=== PATIENT | female | born 1985 | race Two or more races ===

== ENCOUNTER 2022-02-08 04:45 | Emergency (ER) | payer OTHER ==
[~2022-02-08] VITALS: Ht 154.9 cm; Wt 63.5 kg
--- NOTE | 2022-02-08 06:27 | NUR ---
TO ER BED 1. BIBS C/O NON RADIATING LOWER BACK PAIN FOR 1 WEEK. IBUPROFEN TAKEN WITHOUT ANY RELIEF. PT CHANGED INTO GOWN. CONNECTED TO MONITOR. AWAITING MD JEAN BAPTISTE
--- NOTE | 2022-02-08 06:49 | NUR ---
URINE COLLECTED AND SENT TO LAB
[2022-02-08] MEDS ORDERED: KETOROLAC TROMETHAMINE INJ 30 MG/ML VIAL ONE (06:54)
[2022-02-08] MEDS ORDERED: CYCLOBENZAPRINE 10 MG TABLET ONE ×2 (06:54→06:58)
[2022-02-08] MEDS ORDERED: CYCLOBENZAPRINE 10 MG TABLET PO ONE (07:00)
[2022-02-08] MEDS ORDERED: KETOROLAC TROMETHAMINE INJ 60 MG/2 ML VIAL IM ONE (07:00)
[2022-02-08] MEDS ORDERED: LIDOCAINE 5% (PATCH) 1 EA PATCH TP SCH (07:00)
[2022-02-08 07:30] LABS: BILIRUBIN,URINE NEGATIVE (NEGATIVE); COLOR,URINE YELLOW (YELLOW); LEUKOCYTE ESTERASE ,URINE TRACE (NEGATIVE); NITRITE, URINE POSITIVE (NEGATIVE); PROTEIN,URINE NEGATIVE (NEGATIVE); UGLUCOSE NEGATIVE (NEGATIVE); UROBILINOGEN,URINE 0.2 EU/dL (0.2)
[2022-02-08 08:02] LABS: BACTERIA,URINE Many /HPF (None Seen); RBC,URINE 0-2 /HPF (0-2); SQUAMOUS EPITHELIAL CELL,UR Moderate /HPF (None Seen)
[2022-02-08] MEDS ORDERED: CEPH500C2 PO (08:20)
[2022-02-08] MEDS ORDERED: CYCL5TAB PO (08:20)
--- NOTE | 2022-02-08 08:43 | NUR ---
Patient discharged to home in stable condition. Written and verbal after care instructions given. Patient verbalizes understanding of instruction.
[2022-02-08 08:55] VITALS: BP 133/90
== END 2022-02-08 08:55 | disposition home or self-care (01) ==
LOC: ER 04:45
DX: S39.012A Strain of muscle, fascia and tendon of lower back, initial encounter (principal); N39.0 Urinary tract infection, site not specified; Z90.49 Acquired absence of other specified parts of digestive tract; Z79.899 Other long term (current) drug therapy; X58.XXXA Exposure to other specified factors, initial encounter; Y93.89 Activity, other specified; Y92.89 Other specified places as the place of occurrence of the external cause; Y99.8 Other external cause status
CPT/HCPCS: 81001; 84703; 87077; 87086; 87186; 96372; 99283; J1885